=== PATIENT | male | born 1980 | race Caucasian/White ===

== ENCOUNTER 2018-05-25 22:49 | Emergency (ER) | payer OTHER ==
[~2018-05-25] VITALS: Ht 162.6 cm; Wt 83.9 kg
[~2018-05-25 22:49] MED LIST: CIPRO 500MG (E500 MG PO; LEVSIN0.125 M1 PO; PERCOCET 325 MG1 TA2 PO
[2018-05-25 22:56] VITALS: BP 152/95
--- NOTE | 2018-05-25 23:06 | ED GENERAL ADULT ---
History of Present Illness General Chief Complaint: General Adult Stated Complaint: DIZZINESS AND FATIGUE X FEW DAYS, NOW BP IS HIGH Source: patient Exam Limitations: no limitations Vital Signs & Intake/Output Vital Signs & Intake/Output Vital Signs Date Time Temp Pulse Resp B/P B/P Pulse O2 O2 Flow FiO2 Mean Ox Delivery Rate 05/25 2256 99.0 87 18 152/95 100 Room Air ED Intake and Output 05/26 0000 05/25 1200 Intake Total Output Total Balance Patient 185 lb Weight Weight Reported by Patient Measurement Method Allergies Coded Allergies: MDX - Avocados (AVOCADOS) (BREATHING DIFFICULTIES 07/08/13) MDX - Acetazolamide (Acetazolamide) (Intermediate, Rapid heart beat 04/26/14) Reconcile Medications Ciprofloxacin (Cipro) 500 MG TABLET 1 TAB PO BID POSSIBLE UTI Hyoscyamine (Levsin) 0.125 MG TABLET 1 TAB PO Q4 PRN ABDOMINAL PAIN OXYCODONE HCL/ACETAMINOPHEN (Percocet 5-325 MG Tablet) 325 MG/5 MG TAB 1-2 TAB PO Q4-6 PRN PRN PAIN Triage Note: PT FROM HOME C/O LETHARGY X3 DAYS, LOSS OF APPETITE. PT STATES HE HAS NOT HAD AN APETITE SINCE THURSDAY WHEN HE BEGAN TO TAKE OMEPRAZOLE. PT STATES LETHARGY. VSS. Triage Nurses Notes Reviewed? yes Onset: Gradual Duration: day(s): Timing: recent history Injury Environment: home Severity: mild Modifying Factors: Improves With: rest. Associated Symptoms: "I've lost my appetite" HPI: 37 yo gentleman in prior good health presents with fatigue for the past 5 days, as well as loss of appetite for the past week. "I've lost 10 pounds in the past week." He notes mild dizziness. He notes that he started prilosec 5 days ago. "I took it and it just made me so sleepy... I couldn't get out of bed... I took it again on thursday and the same thing happened, so I stopped the medication." He notes no abdominal pain, nausea, vomiting, diarrhea, dysuria, fever, chills, night sweats. He is otherwise well. Past History Travel History Traveled to [place] past 21 day No Medical History Any Pertinent Medical History? see below for history EENT: glaucoma Gastrointestinal: GERD Renal: nephrolithiasis Tetanus Vaccine: 04/30/14 Surgical History Surgical History: non-contributory Psychosocial History What is your primary language Ma[place] Tobacco Use: Never used ETOH Use: denies use Illicit Drug Use: denies illicit drug use Family History Hx Contributory? No Review of Systems Review of Systems Constitutional: Denies: see HPI. Physical Exam Physical Exam General Appearance: no apparent distress Comments: Review of Systems - except as otherwise noted in HPI Review of Systems Constitutional:no symptoms. EENTM:no symptoms. Respiratory:no symptoms. Cardiovascular:no symptoms. GI:no symptoms. Genitourinary:no symptoms. Musculoskeletal:no symptoms. Skin:no symptoms. Neurological/Psychological:no symptoms. Hematologic/Endocrine:no symptoms. Immunologic/Allergic:no symptoms. All Other Systems: Reviewed and Negative Physical Exam Physical Exam General Appearance: well developed/nourished, no apparent distress Head: atraumatic, normal appearance Eyes: Bilateral: normal appearance. Ears, Nose, Throat: normal pharynx, normal ENT inspection Neck: normal inspection, supple, full range of motion Respiratory: normal breath sounds, chest non-tender, no respiratory distress, quiet respiration, lungs clear Cardiovascular: regular rate/rhythm Gastrointestinal: normal bowel sounds, soft, non-tender, no organomegaly Back: normal inspection, normal range of motion Extremities: normal inspection, normal capillary refill, normal range of motion, no edema Neurologic/Psych: no motor/sensory deficits, awake, alert, oriented x 3 Skin: intact, normal color, warm/dry Core Measures ACS in differential dx? No CVA/TIA Diagnosis: No Sepsis Present: No Sepsis Focused Exam Completed? No Progress Differential Diagnoses I considered the following diagnoses in my evaluation of the patient: viral syndrome vs LORI vs GERD vs other... 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 Plan of Care: Orders Procedure Date/time Status EKG 05/25 2306 Active TROPONIN LEVEL 05/25 2300 Complete LIPASE 05/25 2300 Complete COMPREHENSIVE METABOLIC PANEL 05/25 2300 Complete CBC WITHOUT DIFFERENTIAL 05/25 2300 Complete AMYLASE 05/25 2300 Complete Laboratory Tests 05/25/182305: Troponin I Cancelled, Amylase Cancelled, Lipase Cancelled 05/25/182299: Anion Gap 16, Estimated GFR > 60, BUN/Creatinine Ratio 15.5, Glucose 125 H, Calcium 10.7 H, Total Bilirubin 0.9, AST 47, ALT 89 H, Alkaline Phosphatase 84 , Troponin I < 0.01, Total Protein 8.7 H, Albumin 5.2 H, Globulin 3.5, Albumin /Globulin Ratio 1.5, Amylase 37, Lipase 134, CBC w Diff NO MAN DIFF REQ, RBC 5.46, MCV 87.9, MCH 30.4, MCHC 34.6, RDW 12.2, MPV 9.0, Gran % 68.7, Lymphocytes % 19.2 L, Monocytes % 8.1, Eosinophils % 3.2, Basophils % 0.8, Absolute Granulocytes 6.5, Absolute Lymphocytes 1.8, Absolute Monocytes 0.8 H, Absolute Eosinophils 0.3, Absolute Basophils 0.1 Initial ED EKG: NSR, NO CHANGE FROM PRIOR Departure Departure Disposition: HOME OR SELF CARE Condition: Stable Clinical Impression Primary Impression: Fatigue Secondary Impressions: Dizziness Referrals: Randy SOTO,Jax Escamilla (PCP/Family) Departure Forms: Customer Survey General Discharge Information Comments 05/26/18, 1:15am... pt with benign labs. benign exam.. 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 Critical Care Note Critical Care Note Critical Care Time: non-applicable
[2018-05-25 23:15] LABS: ABSOLUTE BASOPHIL COUNT 0.1 /CUMM (0.0-0.2); ABSOLUTE EOSINOPHIL COUNT 0.3 /CUMM (0.0-0.7); ABSOLUTE GRANULOCYTE CT 6.5 /CUMM (1.4-6.5); ABSOLUTE LYMPH COUNT 1.8 /CUMM (1.2-3.4); ABSOLUTE MONOCYTE COUNT 0.8 /CUMM (0.10-0.60); BASOPHIL % 0.8 % (0.0-2.0); EOSINOPHIL % 3.2 % (0-5); GRANULOCYTE % 68.7 % (42.2-75.2); MEAN CORPUSCULAR HGB 30.4 PG (27.0-31.0); MEAN CORPUSCULAR HGB CONC 34.6 G/DL (33.0-37.0); MEAN CORPUSCULAR VOLUME 87.9 FL (80.0-94.0); PLATELET COUNT 262 /CUMM (130-400); RBC DISTRIBUTION WIDTH 12.2 % (11.5-14.5); RED BLOOD CELL CT 5.46 /CUMM (4.70-6.10); WHITE BLOOD CELL COUNT 9.4 /CUMM (4.8-10.8)
== END 2018-05-26 01:26 ==
LOC: ERH 22:49
PROVIDERS: Emergency Medicine
DX: R53.83 Other fatigue (principal); R42 Dizziness and giddiness
CPT/HCPCS: 93005; 93010